=== PATIENT | female | born 1985 | race American Indian/Alaskan Native ===

== ENCOUNTER 2018-04-29 17:17 | Emergency (ER) | payer SELFPAY ==
[2018-04-29 19:09] LABS: Bacteria,Urine 1+ /HPF (Negative); Bilirubin,Urine NEG (Negative); Blood,Urine NEG (Negative); Color,Urine Yellow (Yellow); Mucus,Urine FEW /HPF; Protein,Urine <15 mg/dL mg/dL (Negative); Urobilinogen,Urine < 2.0 mg/dL (<2.0)
[2018-04-29 19:26] LABS: HCG Qualitative,Urine Positive (Negative)
--- NOTE | 2018-04-29 21:02 | Emergency Department Report ---
ED Female HPI - General Chief complaint: Urogenital-Female Stated complaint: VAGINAL PRESSURE/ Time Seen by Provider: 04/29/18 18:01 Source: patient Mode of arrival: Ambulatory Limitations: No Limitations - History of Present Illness Initial comments: 33-year-old [place] female reports that she is 15 weeks states that she is having pressure after cervix while at work. 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 She reports that the pressure is worse with being on her feet and better while she is sitting and resting. Patient reports no pelvic pain at this time. Patient reports that she had an [facility] done at [facility] in [place] and that was done about a month and a half ago. Patient denies any vaginal bleeding she does have some vaginal discharge. She states that she has not started care but has started vitamins. -: days(s) (5) Severity scale (0 -10): 0 Quality: other (pressure) Consistency: intermittent Improves with: other (sitting and resting) Worsens with: movement, other (weight-bearing) Are you Now?: Yes Associated Symptoms: denies: vaginal bleeding, abdominal pain, nausea/vomiting, fever/chills, headaches, dysuria, hematuria, rash, seizure, shortness of breath - Related Data Sexually active: Yes (men) : 3 Para: 1 Previous Rx's Medication Instructions Recorded Last Taken Type HYDROcodone/ACETAMINOPHEN [[place] 1 each PO Q6H #20 tablet 03/14/14 Unknown Rx 5/325 Tablet] Ibuprofen [Motrin] 600 mg PO Q8H PRN #60 tablet 03/14/14 Unknown Rx Penicillin Vk [Veetids TAB] 500 mg PO QID #40 tablet 03/14/14 Unknown Rx Vit-Fe Fumar-FA [ 1 tab PO QDAY #30 tablet 09/17/15 Unknown Rx Vitamin] metroNIDAZOLE [Flagyl TAB] 500 mg PO Q12HR #14 tab 04/29/18 Unknown Rx Allergies Allergy/AdvReac Type Severity Reaction Status Date / Time No Known Allergies Allergy Unverified 09/13/13 15:15 ED Review of Systems ROS: Stated complaint: VAGINAL PRESSURE/ Other details as noted in HPI Constitutional: denies: chills, fever Eyes: denies: eye pain, eye discharge, vision change Gastrointestinal: other (cervical pressure). denies: abdominal pain, nausea, vomiting, diarrhea Genitourinary: denies: urgency, dysuria, discharge Musculoskeletal: denies: back pain, joint swelling, arthralgia Skin: denies: rash, lesions Neurological: denies: headache, weakness, paresthesias Psychiatric: denies: anxiety, depression Hematological/Lymphatic: denies: easy bleeding, easy bruising ED Past Medical Hx - Past Medical History Hx Asthma: Yes Additional medical history: Patient has been twice with no living children and 1 miscarriage - Surgical History Past Surgical History?: No - Social History Smoking Status: Never Smoker Substance Use Type: None - Medications Home Medications: Home Medications Medication Instructions Recorded Confirmed Last Taken Type HYDROcodone/ACETAMINOPHEN [[place] 1 each PO Q6H #20 tablet 03/14/14 Unknown Rx 5/325 Tablet] Ibuprofen [Motrin] 600 mg PO Q8H PRN #60 tablet 03/14/14 Unknown Rx Penicillin Vk [Veetids TAB] 500 mg PO QID #40 tablet 03/14/14 Unknown Rx Vit-Fe Fumar-FA [ 1 tab PO QDAY #30 tablet 09/17/15 Unknown Rx Vitamin] metroNIDAZOLE [Flagyl TAB] 500 mg PO Q12HR #14 tab 04/29/18 Unknown Rx ED Physical Exam - General Limitations: No Limitations General appearance: alert, in no apparent distress - Head Head exam: Present: atraumatic, normocephalic - Eye Eye exam: Present: normal appearance - ENT ENT exam: Present: mucous membranes moist - Neck Neck exam: Present: normal inspection, full ROM - Respiratory Respiratory exam: Present: normal lung sounds bilaterally. Absent: respiratory distress - Cardiovascular Cardiovascular Exam: Present: regular rate, normal rhythm. Absent: systolic murmur, diastolic murmur, rubs, gallop - GI/Abdominal GI/Abdominal exam: Present: soft, normal bowel sounds. Absent: tenderness - External exam: Present: normal external exam Speculum exam: Present: vaginal discharge. Absent: erythema Bi-manual exam: Absent: cervical motion tendernes, adnexal tenderness, adnexal mass, uterine tenderness - Extremities Exam Extremities exam: Present: normal inspection - Back Exam Back exam: Present: normal inspection - Neurological Exam Neurological exam: Present: alert, oriented X3 - Psychiatric Psychiatric exam: Present: normal affect, normal mood - Skin Skin exam: Present: warm, dry, intact, normal color. Absent: rash ED Course Vital Signs 04/29/18 17:31 Temperature 98.6 F Pulse Rate 98 H Respiratory 18 Rate Blood Pressure 132/76 O2 Sat by Pulse 100 Oximetry ED Medical Decision Making - Medical Decision Making Patient's been evaluated by this provider fast track. Patient currently has no pelvic or abdominal pain. Patient had an ultrasound done at a clinic, a clinic in [place] 6 weeks ago. Patient currently is not under OB management. Wet prep shows she has bacterial vaginosis. Bimanual exam patient has no tenderness to the pelvic os is closed. No adnexal masses or tenderness. Discussed the patient I will treat her for her bacterial vaginosis and she needs to follow up with OB this week. Discussed the patient that the pressure she states feeling may be the fact that her pelvic is starting to stretch as the baby growth. But it would be better if she is managed by OB. Patient verbalized understanding. Critical care attestation.: If time is entered above; I have spent that time in minutes in the direct care of this critically ill patient, excluding procedure time. ED Disposition Clinical Impression: BV (bacterial vaginosis), Pelvic pressure in Disposition: [id number] TO HOME OR SELFCARE Is pt being admited?: No Does the pt Need Aspirin: No Condition: Stable Instructions: Bacterial Vaginosis (ED) Additional Instructions: Please take antibiotics as prescribed. Please follow up with OB as this is most important for the healthof your baby. Continue with your vitamins as prescribed. Prescriptions: metroNIDAZOLE [Flagyl TAB] 500 mg PO Q12HR #14 tab Referrals: USAMA REN MD [Primary Care Provider] - 3-5 Days [facility] [Provider Group] - 3-5 Days [facility] [Provider [facility]] - 3-5 Days [facility] [Provider Group] - 3-5 Days [facility] [Provider Group] - 3-5 Days Forms: STI Treatment and Prevention, Work/School Release Form(ED)
[2018-04-29 22:35] VITALS: BP 122/68
== END 2018-04-29 22:33 | disposition home or self-care (01) ==
LOC: ED 17:17
DX: O23.592 Infection of other part of genital tract in pregnancy, second trimester (principal); O26.892 Other specified pregnancy related conditions, second trimester; R10.2 Pelvic and perineal pain; O99.512 Diseases of the respiratory system complicating pregnancy, second trimester; J45.909 Unspecified asthma, uncomplicated; Z3A.15 15 weeks gestation of pregnancy
CPT/HCPCS: 81001; 81025; 87210

== ENCOUNTER 2018-07-07 18:01 | Outpatient (CLI) | payer MEDICAID ==
[2018-07-07 19:22] VITALS: BP 115/72
== END 2018-07-07 21:30 | disposition home or self-care (01) ==
LOC: TRG 18:01
PROVIDERS: ATTEND Obstetrics & Gynecology
DX: O47.02 False labor before 37 completed weeks of gestation, second trimester (principal); Z3A.26 26 weeks gestation of pregnancy
CPT/HCPCS: 59025